=== PATIENT | male | born 1940 | race Caucasian/White ===

== ENCOUNTER → 2016-10-12 | Outpatient (CLI) | payer MEDICARE, OTHER ==
[~2016-10-12] MED LIST: APRESOLINE50 MG PO; ASPI325T6 PO; ASPIR-LOW81 MG PO; ASPIRIN 81M81 MG/TA2 PO; ASPIRIN E.C. 8181 MG PO; ATENOLOL25 MG PO; BYSTOLIC5 MG PO; CARTIA; CENTRUM1 TA1; CENTRUM1 TAB PO; DEMADEX 20MG20 M1 PO; DEMADEX 20MG20 MG PO; FAMILY PHARMACY99 MG PO; FARXIGA5 PO; FE-TABS325 MG PO; FLOMAX 0.40.4 MG/CAP PO; FLOMAX0.4 MG PO; FOLIC ACID 40400 MCG PO; GLUCOPHAGE500 MG/TAB PO; HCTZ 25MG25 MG PO; HCTZ/TRIAMTEREN1 TAB PO; LEXAPRO20 MG PO; LISINOPRIL40 MG PO; LORTAB 5/500 501 TAB PO; MINIPRESS2 MG PO; NEURONTIN100 MG/CAP PO; NORCO 325 MG-7.1 TAB PO; NORVASC 10MG10 MG PO; NORVASC 5MG5 MG/TAB PO; PRAZOSIN HCL2 MG PO; PRINIVIL40 MG PO; SAW PALMETTO450 MG PO; SYNTHROID0.05 MG PO; SYNTHROID0.05 MG/TA PO; SYNTHROID0.075 MG/T PO; TAMBOCOR 1100 MG/TAB PO; TEKTURNA300 MG PO; THERAPEUTIC PO; VIT B-6100 MG PO; VITAMIN C BUFF500 MG PO; VITAMIN C PO; ZESTRIL40 MG PO; [UNRECOGNIZED DRUG - OTHER] PO
== END ==
LOC: MHCPAIN 09:51
DX: G89.29 Other chronic pain (principal); M47.817 Spondylosis without myelopathy or radiculopathy, lumbosacral region; M54.16 Radiculopathy, lumbar region; M53.3 Sacrococcygeal disorders, not elsewhere classified; M48.06 Spinal stenosis, lumbar region
CPT/HCPCS: G0463

== ENCOUNTER → 2016-11-03 | Outpatient (CLI) | payer MEDICARE, OTHER | LOC: MHCPAIN 10:07 | DX: M47.817 Spondylosis without myelopathy or radiculopathy, lumbosacral region (principal); M53.3 Sacrococcygeal disorders, not elsewhere classified | CPT/HCPCS: G0260; Q9967 ==

== ENCOUNTER → 2016-12-14 | Outpatient (CLI) | payer MEDICARE, OTHER | LOC: MHCPAIN 09:52 | DX: G89.29 Other chronic pain (principal); M47.27 Other spondylosis with radiculopathy, lumbosacral region; M48.06 Spinal stenosis, lumbar region | CPT/HCPCS: G0463 ==

== ENCOUNTER 2016-12-18 21:33 | Inpatient (IN) | payer MEDICARE, OTHER ==
[~2016-12-18] VITALS: Ht 180.3 cm; Wt 132.9 kg
[2016-12-18 22:17] LABS: BASO # 0.1 (0.0-0.2); BASO % 0.7 % (0.0-2.0); EOS # 0.2 (0.0-0.7); EOS % 1.4 % (0-4.0); GRAN # 11.3 (1.4-6.5); GRAN % 80.3 % (42.2-75.2); HEMOGLOBIN 13.9 g/dl (13.5-18.0); LYMPH # 1.3 (1.2-3.4); LYMPH % 9.5 % (20.0-51.0); MEAN CELL VOLUME 82 fl (80.0-100.0); MEAN CORPUSCULAR HEMOGLOBIN 25 pg (27.0-31.0); MEAN CORPUSCULAR HGB CONC 30 g/dl (33.0-37.0); MEAN PLATELET VOLUME 10.3 fl (7.4-10.4); MONO # 1.1 (0.1-0.6); MONO % 7.8 % (1.7-9.3); PLATELET COUNT 372 K/mm3 (130-400); RED BLOOD COUNT 5.61 M/mm3 (4.20-5.60); REDCELL DISTRIBUTION WIDTH-CV 19.8 % (11.5-14.5)
[2016-12-18 22:30] LABS: ADJUSTED CALCIUM 9.3 mg/dL (8.4-10.2); ALBUMIN 4.4 gm/dL (3.5-5.0); BILIRUBIN,TOTAL 0.9 mg/dL (0.0-1.0); CALCIUM 9.6 mg/dL (8.4-10.2); CREATININE, serum 1.29 mg/dL (0.66-1.25); POTASSIUM 3.8 mmol/L (3.4-5.0)
[2016-12-18 23:22] LABS: PH 5 (5-8); SQUAMOUS EPITHELIAL 0-2 /hpf; URINE APPEARANCE Hazy; URINE BACTERIA None Seen /hpf; URINE BILIRUBIN Negative (NEGATIVE); URINE BLOOD Negative (NEGATIVE); URINE COLOR Yellow; URINE GLUCOSE 3+ (NEGATIVE); URINE KETONE 1+ (NEGATIVE); URINE RBC 0-2 /hpf; URINE UROBILINOGEN Negative (NEGATIVE); URINE WBC 0-2 /hpf
[2016-12-18] MEDS ORDERED: ASPI325T6 PO (23:52)
[2016-12-19] VITALS (690 sets, daily range): BP systolic 133–181; BP diastolic 50–85; PULSE 68–89; TEMP 97.8–99.1; O2SAT 78–100
[2016-12-19 06:08] LABS: BASO # 0.1 (0.0-0.2); BASO % 0.7 % (0.0-2.0); EOS # 0.2 (0.0-0.7); EOS % 2.1 % (0-4.0); GRAN # 7.9 (1.4-6.5); GRAN % 73.5 % (42.2-75.2); HEMATOCRIT 38.9 % (42.0-52.0); LYMPH # 1.6 (1.2-3.4); LYMPH % 14.5 % (20.0-51.0); MEAN CELL VOLUME 82 fl (80.0-100.0); MEAN CORPUSCULAR HEMOGLOBIN 25 pg (27.0-31.0); MEAN CORPUSCULAR HGB CONC 31 g/dl (33.0-37.0); MEAN PLATELET VOLUME 10.6 fl (7.4-10.4); MONO % 8.9 % (1.7-9.3); PLATELET COUNT 335 K/mm3 (130-400); RED BLOOD COUNT 4.73 M/mm3 (4.20-5.60); REDCELL DISTRIBUTION WIDTH-CV 19.1 % (11.5-14.5); WHITE BLOOD COUNT 10.7 K/mm3 (4.8-10.8)
[2016-12-19 06:14] LABS: HEMOGLOBIN 11.9 g/dl (13.5-18.0)
[2016-12-19 06:23] LABS: CALCIUM 8.7 mg/dL (8.4-10.2); CREATININE, serum 1.25 mg/dL (0.66-1.25); POTASSIUM 3.3 mmol/L (3.4-5.0)
[2016-12-20] VITALS (8 sets, daily range): BP systolic 133–152; BP diastolic 48–119; PULSE 17–84; TEMP 97.6–98.8
[2016-12-21 00:18] VITALS: BP 150/59; PULSE 77; TEMP 97.1
[2016-12-21 03:32] VITALS: BP 165/57; PULSE 78; TEMP 98.2
[2016-12-21 08:00] VITALS: BP 179/66; PULSE 73; TEMP 97.9
[2016-12-21 13:55] VITALS: BP 156/44; BP 156/52; PULSE 73; TEMP 97.9
[2016-12-21 15:15] VITALS: BP 141/49; PULSE 70; TEMP 98.1
[2016-12-21 18:55] VITALS: BP 162/57; PULSE 61; TEMP 97.7
[2016-12-22] VITALS (7 sets, daily range): BP systolic 138–155; BP diastolic 48–67; PULSE 54–71; TEMP 97.6–98.7
[2016-12-23 04:37] VITALS: BP 157/57; PULSE 64; TEMP 97.6
[2016-12-23 08:04] VITALS: BP 161/54; PULSE 66; TEMP 97.4
[2016-12-23 12:25] VITALS: BP 148/51; PULSE 58; TEMP 97.5
[2016-12-23 13:18] VITALS: BP 148/51; PULSE 58; TEMP 97.5
[2016-12-23] MEDS ORDERED: NORCO 325 MG-7.1 TAB PO (15:11)
== END 2016-12-23 14:15 | DRG 552 ==
LOC: COL.ER 21:33 → ICU 12-19 00:03 → SURG 12-19 00:03 → MEDICAL 12-19 16:50
PROVIDERS: Emergency Medicine; Nurse Practitioner Family
DX: M48.02 Spinal stenosis, cervical region (principal); Z68.41 Body mass index [BMI] 40.0-44.9, adult; N17.9 Acute kidney failure, unspecified; M50.31 Other cervical disc degeneration, high cervical region; M51.34 Other intervertebral disc degeneration, thoracic region; W18.30XA Fall on same level, unspecified, initial encounter; I48.0 Paroxysmal atrial fibrillation; I12.9 Hypertensive chronic kidney disease with stage 1 through stage 4 chronic kidney disease, or unspecified chronic kidney disease; E11.22 Type 2 diabetes mellitus with diabetic chronic kidney disease; N18.9 Chronic kidney disease, unspecified; E66.01 Morbid (severe) obesity due to excess calories; E11.42 Type 2 diabetes mellitus with diabetic polyneuropathy; Z87.891 Personal history of nicotine dependence; E86.0 Dehydration; G47.33 Obstructive sleep apnea (adult) (pediatric)
CPT/HCPCS: 99223-AI; 99232-AI; 99239; A9585; J0696; J1644; J1815; J1885; J2765; J3010; J7030

== ENCOUNTER → 2016-12-28 | Outpatient (CLI) | payer OTHER ==
[2016-12-28 18:03] LABS: PH 5 (5-8); URINE APPEARANCE Turbid; URINE BACTERIA None Seen /hpf; URINE BILIRUBIN Negative (NEGATIVE); URINE BLOOD Negative (NEGATIVE); URINE COLOR Amber; URINE GLUCOSE 2+ (NEGATIVE); URINE KETONE Negative (NEGATIVE); URINE UROBILINOGEN Negative (NEGATIVE); URINE WBC 20-50 /hpf
== END ==
LOC: ZLAB.STJ 16:12
PROVIDERS: Internal Medicine
DX: Z02.89 Encounter for other administrative examinations (principal)

== ENCOUNTER → 2017-01-04 | Outpatient (REF) ==
[2017-01-04 13:10] LABS: PH 5 (5-8); SQUAMOUS EPITHELIAL None Seen /hpf; URINE APPEARANCE Turbid; URINE BACTERIA Rare /hpf; URINE BILIRUBIN Negative (NEGATIVE); URINE BLOOD Negative (NEGATIVE); URINE COLOR Yellow; URINE GLUCOSE 2+ (NEGATIVE); URINE KETONE Negative (NEGATIVE); URINE UROBILINOGEN Negative (NEGATIVE); URINE WBC None Seen /hpf
== END ==
LOC: ZLAB.STJ 12:40
PROVIDERS: Internal Medicine
DX: Z01.89 Encounter for other specified special examinations (principal)

== ENCOUNTER → 2017-01-06 | Outpatient (REF) ==
[2017-01-06 10:10] LABS: PH 5 (5-8); SQUAMOUS EPITHELIAL 0-2 /hpf; URINE APPEARANCE Clear; URINE BACTERIA None Seen /hpf; URINE BILIRUBIN Negative (NEGATIVE); URINE BLOOD Negative (NEGATIVE); URINE COLOR Yellow; URINE GLUCOSE 1+ (NEGATIVE); URINE KETONE Negative (NEGATIVE); URINE RBC 0-2 /hpf; URINE UROBILINOGEN Negative (NEGATIVE); URINE WBC 0-2 /hpf
== END ==
LOC: ZLAB.STJ 09:32
PROVIDERS: Internal Medicine
DX: Z01.89 Encounter for other specified special examinations (principal)

== ENCOUNTER → 2017-01-09 | Outpatient (CLI) | payer MEDICARE, OTHER | LOC: ZLAB.STJ 10:14 | DX: Z02.89 Encounter for other administrative examinations (principal) ==

== ENCOUNTER → 2017-01-09 | Outpatient (REF) | LOC: ZLAB.STJ 13:29 | DX: Z01.89 Encounter for other specified special examinations (principal) ==